=== PATIENT | female | born 1945 | race Caucasian/White ===

== ENCOUNTER 2023-10-07 19:43 | Observation (INO) ==
[2023-10-07 20:10] LABS: Hematocrit 35.3 % (35-45); Hemoglobin 11.9 g/dL (11.5-14.3); Mean Corpuscular Hemoglobin 31.5 pg (27-33); Mean Corpuscular Hgb Conc 33.6 g/dL (31-36); Mean Corpuscular Volume 93.6 fL (80-97); Mean Platelet Volume 6.2 fL (7.5-11.2); Platelet Count 659 10^3/uL (150-450); Red Blood Count 3.77 10^6/uL (3.63-4.92); Red Cell Distribution Width 14.1 % (12-17)
[2023-10-07 20:30] LABS: Albumin 3.8 g/dL (3.2-5.2); Calcium 9.4 mg/dL (8.6-10.3); Creatinine, Serum 0.69 mg/dL (0.51-0.95); Globulin 3.7 g/dL (2-4); Potassium 4.3 mmol/L (3.5-5.0); Total Bilirubin 0.4 mg/dL (0.2-1.0); Total Protein 7.5 g/dL (6.4-8.9); eGFR CKD-EPI 90.4 (>60)
[2023-10-07] MEDS: Iohexol 300 (CONTRAST) 10 ML SDV IV ONE (21:23)
[2023-10-07 22:59] LABS: C Reactive Protein 6.72 mg/L (<8.01)
[2023-10-07] MEDS: Piperacillin/Tazobac 3.375 BAG 3.375 GM/100 ML BAG IV ONE (23:19)
[2023-10-08] MEDS ORDERED: Zosyn per Pharmacy NOTE FOLLOW UP SCH (01:00)
[2023-10-08] MEDS: DOXYcycline 100 MG in NS 0.9% 250 ml 250 ML IVPB SCH (01:35)
[2023-10-08] MEDS: Enoxaparin 40 MG/0.4 ML SYR SUBCUT SCH (01:35)
[2023-10-08] MEDS: ZOSYN 3.375 GM Q8H per EXTENDED INFUSION IV SCH (03:49)
[2023-10-08 04:12] LABS: HIV 4th Generation Nonreactive (Nonreactive)
[2023-10-08 14:46] LABS: INR 1.15 (0.83-1.13)
[2023-10-09 07:01] LABS: ABS Basophils 0.1 10^3/uL (0.0-0.1); ABS Eosinophils 0.5 10^3/uL (0.0-0.5); ABS Lymphocytes 1.4 10^3/uL (1.0-4.8); ABS Monocytes 0.7 10^3/uL (0.0-0.9); ABS Neutrophils 5.9 10^3/uL (1.5-7.6); Eosinophil % 5.4 %; Hematocrit 32.4 % (35-45); Hemoglobin 11.3 g/dL (11.5-14.3); Lymphocyte % 16.8 %; Mean Corpuscular Hemoglobin 32.2 pg (27-33); Mean Corpuscular Hgb Conc 34.7 g/dL (31-36); Mean Corpuscular Volume 92.7 fL (80-97); Mean Platelet Volume 6.4 fL (7.5-11.2); Platelet Count 513 10^3/uL (150-450); Red Blood Count 3.49 10^6/uL (3.63-4.92); Red Cell Distribution Width 13.9 % (12-17); White Blood Count 8.6 10^3/uL (3.8-11.8)
[2023-10-09 07:43] LABS: Calcium 8.7 mg/dL (8.6-10.3); Creatinine, Serum 0.52 mg/dL (0.51-0.95); eGFR CKD-EPI 96.8 (>60)
[2023-10-09] MEDS ORDERED: Magnesium Hydroxide LIQ 30 ML UDC PO PRN (10:22)
[2023-10-09] MEDS ORDERED: fentaNYL 100 mcg/2 ml 50 MCG/ML VIAL ONE (10:39)
[2023-10-09 12:36] LABS: TB1 Ag minus Nil Result -0.01 IU/mL; TB2 Ag minus Nil Result 0.01 IU/mL
[2023-10-09 13:21] LABS: QuantiferonTb Gold Plus Result Negative (Negative)
[2023-10-09 14:07] VITALS: BP 131/61
== END 2023-10-09 17:20 | disposition home or self-care (01) ==
LOC: EDHOLD 19:43 → ED 19:43 → SUATTDRO 10-08 00:31 → MED 10-08 12:02
PROVIDERS: ADMIT Internal Medicine; ATTEND Internal Medicine